=== PATIENT | female | born 1965 | race Two or more races ===

== ENCOUNTER 2020-03-23 02:27 | Emergency (ER) | payer OTHER ==
[~2020-03-23] VITALS: Ht 157.5 cm; Wt 90.7 kg
[2020-03-23] MEDS ORDERED: TAMS0.4C PO (05:03)
[2020-03-23] MEDS ORDERED: CIPRO500 MG PO (05:03)
[2020-03-23] MEDS ORDERED: KETO10TA2 PO (05:03)
== END 2020-03-23 05:11 | disposition home or self-care (01) ==
LOC: ER 02:27
DX: N20.1 Calculus of ureter (principal); Z03.818 Encounter for observation for suspected exposure to other biological agents ruled out

== ENCOUNTER 2022-11-30 17:38 | Emergency (ER) | payer OTHER ==
[~2022-11-30] VITALS: Ht 157.5 cm; Wt 92.1 kg
[~2022-11-30 17:38] MED LIST: CIPRO500 MG PO; KETO10TA2 PO; TAMS0.4C PO
[2022-11-30] MEDS ORDERED: GLUMETZA500 MG PO (18:00)
[2022-11-30] MEDS ORDERED: COZAAR25 MG PO (18:00)
[2022-11-30] MEDS ORDERED: CRESTOR10 MG PO (18:02)
== END 2022-11-30 20:49 | disposition home or self-care (01) ==
LOC: ER 17:38
DX: R10.9 Unspecified abdominal pain (principal); Z87.442 Personal history of urinary calculi; Z88.8 Allergy status to other drugs, medicaments and biological substances